=== PATIENT | female | born 1965 | race Caucasian/White ===

== ENCOUNTER 2020-08-14 10:33 | Outpatient (CLI) | payer BC ==
[~2020-08-14 10:33] MED LIST: COLON CLENZ PO; DOCU-131 PO; IBUP-1222 PO; MULT-717 PO; MV,I66.7 PO; OMEP-110 PO; OXYC1TAB7 PO; SUMA100T4 PO; VIT1TABL32 PO; WATERPILL PO; [UNRECOGNIZED DRUG - OTHER] PO
== END 2020-08-14 23:59 | disposition home or self-care (01) ==
LOC: CFH 10:33
PROVIDERS: ATTEND Internal Medicine
DX: Z12.31 Encounter for screening mammogram for malignant neoplasm of breast (principal); Z13.820 Encounter for screening for osteoporosis; M85.88 Other specified disorders of bone density and structure, other site; N95.9 Unspecified menopausal and perimenopausal disorder
CPT/HCPCS: 77063; 77067; 77080